=== PATIENT | female | born 1930 | race Caucasian/White ===

== ENCOUNTER 2021-09-19 10:31 | Emergency (ER) | payer MEDICARE, BC ==
[2021-09-19] MEDS ORDERED: Lidocaine 1% with EPINEPHrine 1:100,000 20 ML MDV INFILT ONE (10:32)
[2021-09-19] MEDS ORDERED: Lidocaine 1% with EPINEPHrine 1:200,000 30 ML SDV SUBCUT STA (10:58)
[2021-09-19] MEDS ORDERED: Bacitracin Oint 1 GM U/D Packet TOP ONE (11:04)
[2021-09-19] MEDS ORDERED: Acetaminophen 500 MG Tab PO ONE (11:23)
[2021-09-19 11:46] VITALS: BP 154/84; PULSE 72
== END 2021-09-19 12:18 | disposition home or self-care (01) ==
LOC: FB.ED 10:31
DX: S01.81XA Laceration without foreign body of other part of head, initial encounter (principal); S01.01XA Laceration without foreign body of scalp, initial encounter; E78.00 Pure hypercholesterolemia, unspecified; I10 Essential (primary) hypertension; Z79.01 Long term (current) use of anticoagulants; Z79.899 Other long term (current) drug therapy; W19.XXXA Unspecified fall, initial encounter
CPT/HCPCS: 12011; 70450; 99284; 99285; A9270